=== PATIENT | male | born 1980 | race American Indian/Alaskan Native ===

== ENCOUNTER 2018-12-09 17:48 | Emergency (ER) | payer BC ==
[2018-12-09 18:00] VITALS: BP 134/82
[2018-12-09] MEDS ORDERED: oxyCODONE /ACETAMINOPHEN 5-325MG TAB PO ONE (18:49)
[2018-12-09] MEDS ORDERED: CYCLOBENZAPRINE 10 MG TAB PO ONE (18:49)
[2018-12-09] MEDS ORDERED: ONDANSETRON 4 MG ODT TAB PO ONE (18:49)
[2018-12-09] MEDS ORDERED: IBUPROFEN 600 MG TAB PO ONE (18:49)
--- NOTE | 2018-12-09 19:07 | XRay Report ---
CHEST 1 VIEW INDICATION: fall - pain. COMPARISON: None FINDINGS: Support devices: None. Heart: Within normal limits. Lungs/Pleura: No acute air space or interstitial disease. Additional findings: None. IMPRESSION: 1. No acute findings. Signer Name: Chepe Palomo MD Signed: 12/09/2018 7:03 PM Workstation Name: [id number]
--- NOTE | 2018-12-09 19:08 | XRay Report ---
Left shoulder-3 views INDICATION: pain, fall. COMPARISON: None. IMPRESSION: Comminuted fracture of the distal clavicle with mild inferior displacement of the distal fracture component and overlying soft tissue swelling. No significant DJD. The AC joint is maintain ed. Benign-appearing sclerosis is seen in the humeral neck. Left lung is clear. Signer Name: Chepe Palomo MD Signed: 12/09/2018 7:03 PM Workstation Name: [id number]
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
== END 2018-12-09 20:55 | disposition home or self-care (01) ==
LOC: ED 17:48
DX: S42.032A Displaced fracture of lateral end of left clavicle, initial encounter for closed fracture (principal); S43.92XA Sprain of unspecified parts of left shoulder girdle, initial encounter; S46.912A Strain of unspecified muscle, fascia and tendon at shoulder and upper arm level, left arm, initial encounter; F17.200 Nicotine dependence, unspecified, uncomplicated; F12.10 Cannabis abuse, uncomplicated; V19.9XXA Pedal cyclist (driver) (passenger) injured in unspecified traffic accident, initial encounter; Y93.89 Activity, other specified; Y92.89 Other specified places as the place of occurrence of the external cause; Y99.8 Other external cause status
CPT/HCPCS: 71045; Q0162

== ENCOUNTER 2018-12-14 08:15 | Day surgery (SDC) | payer BC ==
[2018-12-14] MEDS ORDERED: LACTATED RINGERS 1,000 ML IV SCH (09:00)
[2018-12-14] MEDS ORDERED: ceFAZolin/STERILE WATER 2 GM/20 ML SYRINGE IV NR (09:00)
--- NOTE | 2018-12-14 09:27 | Anesthesia Consultation ---
Anesthesia Consult and Med Hx Date of service: 12/14/18 - Airway Anesthetic Teeth Evaluation: Good ROM Head & Neck: Adequate Mental/Hyoid Distance: Adequate Mallampati Class: Class II Intubation Access Assessment: Good - Pulmonary Exam CTA: Yes - Cardiac Exam Cardiac Exam: RRR - Pre-Operative Health Status ASA Pre-Surgery Classification: ASA2 Proposed Anesthetic Plan: General Nerve Block: IS - Pulmonary Hx Smoking: Yes - Additional Comments Anesthesia Medical History Comments: smoker
[2018-12-14] MEDS ORDERED: HYDROmorphone 1 MG/1 ML INJ IV PRN (09:28)
[2018-12-14] MEDS ORDERED: fentaNYL 100 MCG/2 ML INJ IV NR (09:28)
[2018-12-14] MEDS ORDERED: ONDANSETRON 4 MG/2 ML INJ IV PRN (09:28)
--- NOTE | 2018-12-14 09:28 | Anesthesia Day of Surgery ---
Anesthesia Day of Surgery - Day of Surgery Patient Examined: Yes Patient H&P Reviewed: Yes Patient is NPO: Yes
[2018-12-14] MEDS ORDERED: MIDAZOLAM 2 MG/2 ML INJ IV NR (10:00)
[2018-12-14] MEDS ORDERED: BUPIVACAINE-EPINEPHRINE/PF 0.5%-1:200,000 (30 ML) VIAL INFILTRATI ONE ×2 (10:54→11:06)
[2018-12-14] MEDS ORDERED: NEOMY 40 MG/POLYMYXIN B 200,000 UNITS/ML (GU) AMPULE IR ONE (10:54)
[2018-12-14] MEDS ORDERED: dexAMETHasone 20 MG/5 ML VIAL ONE (11:00)
[2018-12-14] MEDS ORDERED: ONDANSETRON 4 MG/2 ML INJ ONE (11:00)
[2018-12-14] MEDS ORDERED: ROCURONIUM 50 MG/5 ML INJ IV ONE (11:00)
[2018-12-14] MEDS ORDERED: LIDOCAINE (1%) 10 MG/1 ML VIAL 20 ML MDV ONE (11:06)
[2018-12-14] MEDS ORDERED: HYDROmorphone 1 MG/1 ML INJ ONE (11:09)
[2018-12-14] MEDS ORDERED: PROPOFOL 200 MG/20 ML VIAL IV ONE (11:09)
[2018-12-14] MEDS ORDERED: LIDOCAINE MPF (2%) 20 MG/1 ML VIAL 5 ML ONE (11:10)
[2018-12-14] MEDS ORDERED: LACTATED RINGERS 1,000 ML ONE (13:55)
[2018-12-14] MEDS ORDERED: NEOSTIGMINE 10MG/10 ML INJ MDV ONE (14:29)
[2018-12-14] MEDS ORDERED: GLYCOPYRROLATE 0.4 MG/2 ML INJ ONE (14:29)
[2018-12-14] MEDS ORDERED: WATER FOR IRRIG STERILE 1,500 ML BOTTLE IR ONE (14:30)
[2018-12-14] MEDS ORDERED: SODIUM CHLORIDE 0.9% IRR 1,500 ML BOTTLE IR ONE (14:30)
--- NOTE | 2018-12-14 14:32 | Procedure Note ---
Date of procedure: 12/14/18 Pre-op diagnosis: displaced left distal clavicle fracture Post-op diagnosis: same Procedure: Open reduction internal fixation left clavicle Procedure The patient was brought to the OR and placed on the OR table supine, following induction and intubation the left shoulder prepped and draped in usual sterile manner. A timeout procedure done to identify the patient and correct operative site. an incision made directly over the distal clavicle and taken down thru soft tissue exposing the fracture site, following reduction of the fracture site a 7-hole contoured distal locked plate applied using C-arm fluoroscopy. Routine closure done and post op dressing applied. Taken to the PACU in stable condition. Anesthesia: MAC, regional Surgeon: CARLTON RIZZO Business Continuity Director: TOM PORTILLO Estimated blood loss: 50-100ml Pathology: none Condition: stable Disposition: PACU
--- NOTE | 2018-12-14 15:12 | XRay Report ---
LEFT CLAVICLE, ONE VIEW INDICATION: CLAVICLE LT DISTAL. COMPARISON: None. IMPRESSION: 5 seconds of fluoroscopy time was provided by radiology during open reduction and risk intern al fixation of a distal left clavicle fracture. One fluoroscopic image is presented. No significant DJD. Signer Name: Joel Corley Jr, MD Signed: 12/14/2018 3:08 PM Workstation Name: [id number]
--- NOTE | 2018-12-14 16:05 | Post Anesthesia Evaluation ---
- Post Anesthesia Evaluation Patient Participated: Yes Airway Patent: Yes Stable Respiratory Function: Yes Nausea/Vomiting: No Temp > 96.8F: Yes Pain Manageable: Yes Adequeate Hydration: Yes Anesthesia Complications: No Block Receding Appropriately: Not Applicable Patient on Ventilator: No
[2018-12-14 16:13] VITALS: BP 116/65
== END 2018-12-14 08:16 | disposition home or self-care (01) ==
LOC: OR 08:15
PROVIDERS: ATTEND Orthopaedic Surgery
DX: S42.032A Displaced fracture of lateral end of left clavicle, initial encounter for closed fracture (principal); Z79.899 Other long term (current) drug therapy; F17.210 Nicotine dependence, cigarettes, uncomplicated; X58.XXXA Exposure to other specified factors, initial encounter; Y93.89 Activity, other specified; Y92.89 Other specified places as the place of occurrence of the external cause
CPT/HCPCS: 23515; 73000; C1713; J1100; J1170; J2250; J2405; J2704; J2710; J3010; J7120; 64450